=== PATIENT | female | born 1960 | race Caucasian/White ===

== ENCOUNTER 2017-01-04 11:36 | Emergency (ER) | payer SELFPAY ==
[~2017-01-04] VITALS: Ht 165.1 cm; Wt 74.8 kg
[~2017-01-04 11:36] MED LIST: ZOLP10TA3 PO
[2017-01-04 11:37] VITALS: BP 117/66; PULSE 88; RESP 20; TEMP 98.8; O2SAT 95
--- NOTE | 2017-01-04 12:01 | PD ---
Physical Exam Time Seen by Provider: 11:58 Narrative 56yo F sent by Dr. Rios for incontinence of bowel and bladder for 3 days. Denies low back. + weakness in bilat lower extremities "been going on for awhile and getting progressively worse.". Denies IV drug use, cancer. Denies current fever, vomiting. Patient ambulatory in triage. Patient seen in triage. Awaiting bed placement. VS reviewed. Data Data Last Documented VS Vital Signs Date Time Temp Pulse Resp B/P Pulse Ox O2 Delivery O2 Flow Rate FiO2 01/04/17 11:37 98.8 88 20 117/66 95 Room Air MDM Supervised Visit with RANDY: Lindsay Benitez Jan 04, 2017 12:01
[2017-01-04 12:21] VITALS: BP 121/71; PULSE 83; RESP 20; TEMP 98.1; O2SAT 94
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
[2017-01-04 13:16] LABS: AUTOMATED NEUTROPHIL # 12.5 TH/MM3 (1.8-7.7); BASOPHIL # 0.1 TH/MM3 (0-0.2); BASOPHIL % 0.7 % (0.0-2.0); EOSINOPHIL % 0.1 % (0.0-4.0); HEMATOCRIT 36.3 % (35.0-46.0); HEMO FLAGS DIFF FINAL; LYMPH % 11.6 % (9.0-44.0); LYMPHOCYTE # 1.7 TH/MM3 (1.0-4.8); MEAN CELL VOLUME 111.7 FL (80.0-100.0); MEAN CORPUSCULAR HGB CONC 33.2 % (32.0-36.0); MONO % 3.9 % (0.0-8.0); NEUT % 83.7 % (16.0-70.0); PLATELET COUNT 314 TH/MM3 (150-450); RED BLOOD COUNT 3.25 MIL/MM3 (4.00-5.30); RED CELL DISTRIBUTION WIDTH 16.9 % (11.6-17.2)
[2017-01-04 13:27] LABS: APTT (PATIENT) 29.7 SEC (24.3-30.1); INTERNATIONAL NORMALIZED RATIO 1.1 RATIO; PROTHROMBIN TIME - PATIENT 12.4 SEC (9.8-11.6)
[2017-01-04 13:38] LABS: BICARBONATE 30.8 MEQ/L (21.0-32.0); POTASSIUM 3.4 MEQ/L (3.5-5.1)
[2017-01-04] MEDS ORDERED: IBUP200T2 PO (13:59)
[2017-01-04] MEDS ORDERED: DIAZEPAM 10 MG TAB PO ONE (14:00)
[2017-01-04] MEDS ORDERED: LORazepam 2 MG/ML VIAL IV PUSH ONE (15:30)
[2017-01-04 16:06] VITALS: BP 126/67; PULSE 85; RESP 21; O2SAT 94
--- NOTE | 2017-01-04 16:16 | RADRPT ---
EXAM DATE/TIME: 01/04/2017 00:00 [facility] COMPARISON: No previous studies available for comparison. INDICATIONS : Mass. Vertigo. Falling. CONTRAST: 15 cc Omniscan (gadodiamide) IV MEDICAL HISTORY : None. SURGICAL HISTORY : section. Right hand/ wrist. ENCOUNTER: Subsequent ACUITY: 4-6 months PAIN SCORE: 0/10 LOCATION: Brain TECHNIQUE: Multiplanar, multisequence MRI of the brain was performed both prior to and following the administration of paramagnetic contrast. FINDINGS: By MRI there is mild central and cortical atrophy. There is no restricted diffusion shabnam dent. There are no extraaxial fluid collections appreciated. Midline structures are intact. Following intravenous administration of gadolinium there is no abnormal contrast enhancement apprecia nathanael. Seventh and eighth nerves are well visualized and are unremarkable. Mastoids are clear. Sinuses appe ar normal. CONCLUSION: Marked central and cortical atrophy more so in the cerebellum than in the supratentor ial brain. Juan Sanchez MD FACR on January 04, 2017 at 15:57 Board Certified Radiologist. This report was verified electronically.
--- NOTE | 2017-01-04 16:23 | RADRPT ---
EXAM DATE/TIME: 01/04/2017 14:36 [facility] COMPARISON: No previous studies available for comparison. INDICATIONS : Mass. CONTRAST: 15 cc Omniscan (gadodiamide) IV MEDICAL HISTORY : None. SURGICAL HISTORY : section. Right hand/wrist sx. ENCOUNTER: Subsequent ACUITY: 4-6 months PAIN SCORE: 1/10 LOCATION: Bilateral neck region. TECHNIQUE: Multiplanar, multisequence MRI examination of the cervical spine was performed. FINDINGS: VERTEBRAE: Normal vertebral body height. Bone marrow signals within normal limits. ALIGNMENT: There is no anterolisthesis or retrolisthesis. CORD: Normal configuration and signal. POST FOSSA: The cerebellar tonsils are normal in position. POST-CONTRAST: No abnormal areas of enhancement are seen. The craniocervical junction and C1-C2 level demonstrate no abnormality. C2-C3: No disc herniation, canal stenosis, or neural foraminal stenosis is present. There is facet arthrosis bilaterally. C3-C4: No disc herniation or canal stenosis is present. There is left uncovertebral osteophyte and there is facet arthrosis bilaterally, left greater than right. There is moderate left neural foraminal stenosi s. C4-C5: There is bilateral facet arthrosis. No disc herniation, canal stenosis, or neural foraminal stenosis is present. C5-C6: There is decreased disc height with endplate osteophytes anteriorly. Left uncovertebral osteophytes a re present causing severe left neuroforaminal stenosis. There is no canal stenosis or right neural fo raminal narrowing. C6-C7: There is decreased disc height with diffuse posterior disc osteophyte complex. Bilateral uncovertebra l osteophytes are present. There is mild narrowing of the spinal canal and mild bilateral neural fora brenda stenosis. C7-T1: There is bilateral facet arthrosis, left greater than right. No disc herniation, canal stenosis or ne ural foraminal narrowing is identified. There is something causing susceptibility artifact posterior to the spinous process at the C7 level. CONCLUSION: 1. No mass is visualized. 2. There are degenerative changes throughout the cervical spine, as detailed above. There is severe l eft neural foraminal narrowing at C5-C6 secondary to uncovertebral osteophyte. Please see above for d etailed description of each level. Hira Wiley MD on January 04, 2017 at 16:17 Board Certified Radiologist. This report was verified electronically.
--- NOTE | 2017-01-04 16:28 | RADRPT ---
EXAM DATE/TIME: 01/04/2017 14:36 [facility] COMPARISON: No previous studies available for comparison. INDICATIONS : Mass. CONTRAST: 15 cc Omniscan (gadodiamide) IV MEDICAL HISTORY : None. SURGICAL HISTORY : section. Right hand/wrist sx. ENCOUNTER: Subsequent ACUITY: 4-6 months PAIN SCORE: 1/10 LOCATION: Bilateral lower back. TECHNIQUE: Multiplanar multisequence MRI of the lumbar spine was performed with and without contrast. FINDINGS: The most caudal appearing lumbar vertebra is numbered as L5. VERTEBRAE: Bone marrow signal is within normal limits and vertebral body height is maintained. There is no anter olisthesis or retrolisthesis. CONUS: Normal level and configuration. POST CONTRAST: No abnormal areas of contrast enhancement are seen. T12-L1: There is decreased disc height with a diffuse disc bulge. No definite canal stenosis or neural forami nal narrowing is seen. There is motion artifact on the axial series. L1-L2: There is mild decreased disc height with a diffuse disc bulge. Mild facet hypertrophy is present. The re is no canal stenosis or significant neuroforaminal narrowing. L2-L3: There is decreased disc height with a diffuse disc bulge and moderate facet hypertrophy. Lateral rece sses are effaced. There is no spinal canal stenosis or neural foraminal narrowing. L3-L4: There is a minimal diffuse disc bulge with mild facet hypertrophy. No spinal canal stenosis or neural foraminal narrowing is visualized. L4-L5: There is severe right and moderate left facet hypertrophy with fluid in the right facet joint. No dis c herniation, canal stenosis, or neural foraminal narrowing is identified. L5-S1: There is moderate bilateral facet hypertrophy with small right synovial cyst posteriorly. No disc her niation, canal stenosis, or neuroforaminal stenosis is visualized. Visualized paraspinous structures demonstrate edema involving the rectum with increased enhancement p articularly of the mucosa. CONCLUSION: 1. Multilevel degenerative disc disease of the lumbar spine, as above. No significant spinal canal st enosis is identified. Please see above for detailed description of each level. 2. Abnormal edema and enhancement of the rectum. This could represent an inflammatory process. Sugges t correlation with the clinical history and consider further evaluation if this is an unexpected find ing. Hira Wiley MD on January 04, 2017 at 16:21 Board Certified Radiologist. This report was verified electronically.
[2017-01-04] MEDS ORDERED: GADODIAMIDE PF 287 MG/ML 5 ML VIAL (for RAD MRI) IV ONE (16:36)
--- NOTE | 2017-01-04 16:39 | RADRPT ---
EXAM DATE/TIME: 01/04/2017 14:36 [facility] COMPARISON: No previous studies available for comparison. INDICATIONS : Mass. Falling. Vertigo. CONTRAST: 15 cc Omniscan (gadodiamide) IV MEDICAL HISTORY : None. SURGICAL HISTORY : section. Right hand/wrist sx. ENCOUNTER: Subsequent ACUITY: 4-6 months PAIN SCORE: 1/10 LOCATION: Bilateral mid back region. TECHNIQUE: Multiplanar multisequence MRI of the thoracic spine was performed. FINDINGS: VERTEBRA: Normal vertebral body height. Homogeneous marrow signal. ALIGNMENT: Normal. CORD: Normal position and configuration. POST CONTRAST: No abnormal areas of contrast enhancement seen. T1-T2: Normal. T2-T3: The thecal sac has a normal diameter. No evidence of disc bulge or protrusion. T3-T4: Mildly displaced rib is present without impingement. T4-T5: The thecal sac has a normal diameter. No evidence of disc bulge or protrusion. T5-T6: Very mild distention is present without impingement T6-T7: Mild displacement is present without impingement T7-T8: The thecal sac has a normal diameter. No evidence of disc bulge or protrusion. T8-T9: The thecal sac has a normal diameter. No evidence of disc bulge or protrusion. T9-T10: The thecal sac has a normal diameter. No evidence of disc bulge or protrusion. T10-T11: Quinten patient is present causing some flattening of the intrathecal space. T11-T12: Mildis present without significant impingement T12-L1: There some flattening of the intrathecal space without significant impingement. There is no prevertebral mass. I do not see of patient's instability and vertigo. CONCLUSION: Mild degenerative changes. There is no evidence for impingement or mass. Juan Sanchez MD FACR on January 04, 2017 at 16:32 Board Certified Radiologist. This report was verified electronically.
--- NOTE | 2017-01-05 17:07 | EKG ---
Date Performed: 01/04/2017 Time Performed: 12:25:45 PTAGE: 56 years EKG: Sinus rhythm NORMAL ECG PREVIOUS TRACING : 06/07/2014 15.14 Compared to prior tracing no significant change DOCTOR: Jose R Childs Interpretating Date/Time 01/05/2017 17:07:29
== END 2017-01-04 18:40 | disposition home or self-care (01) ==
LOC: NEPC 11:36
DX: R15.9 Full incontinence of feces (principal); R53.1 Weakness; F41.9 Anxiety disorder, unspecified; F32.9 Major depressive disorder, single episode, unspecified
CPT/HCPCS: 70553; 72156; 72157; 72158; 80048; 82550; 85025; 85610; 85730; 93005; 99285; A9579

== ENCOUNTER 2017-03-02 10:00 | Inpatient (IN) | payer SELFPAY ==
[~2017-03-02] VITALS: Ht 167.6 cm; Wt 75.0 kg
[~2017-03-02 10:00] MED LIST changes: +IBUP200T2 PO; -ZOLP10TA3 PO
[2017-03-02 10:01] VITALS: BP 135/77; PULSE 93; RESP 20; TEMP 99.5; O2SAT 98
[2017-03-02 10:45] LABS: AUTOMATED NEUTROPHIL # 10.4 TH/MM3 (1.8-7.7); BASOPHIL # 0.1 TH/MM3 (0-0.2); BASOPHIL % 0.7 % (0.0-2.0); EOSINOPHIL % 0.4 % (0.0-4.0); HEMATOCRIT 33.1 % (35.0-46.0); HEMO FLAGS DIFF FINAL; LYMPH % 13.3 % (9.0-44.0); LYMPHOCYTE # 1.7 TH/MM3 (1.0-4.8); MEAN CELL VOLUME 121.8 FL (80.0-100.0); MEAN CORPUSCULAR HEMOGLOBIN 38.8 PG (27.0-34.0); MEAN CORPUSCULAR HGB CONC 31.9 % (32.0-36.0); MONO % 4.7 % (0.0-8.0); NEUT % 80.9 % (16.0-70.0); PLATELET COUNT 222 TH/MM3 (150-450); RED BLOOD COUNT 2.72 MIL/MM3 (4.00-5.30); RED CELL DISTRIBUTION WIDTH 17.7 % (11.6-17.2); WHITE BLOOD COUNT 12.8 TH/MM3 (4.0-11.0)
[2017-03-02 11:02] LABS: ANION GAP 10 MEQ/L (5-15); AST (GOT) 184 U/L (15-37); BICARBONATE 24.4 MEQ/L (21.0-32.0); BLOOD UREA NITROGEN 4 MG/DL (7-18); CHLORIDE 104 MEQ/L (98-107); GLOMERULAR FILTRATION RATE 112 ML/MIN (>89); POTASSIUM 3.6 MEQ/L (3.5-5.1); SODIUM (NA) 138 MEQ/L (136-145)
[2017-03-02 11:03] LABS: ALT (GPT) 20 U/L (10-53)
[2017-03-02 11:05] LABS: ALKALINE PHOSPHATASE 352 U/L (45-117); TOTAL BILIRUBIN ADULT 4.2 MG/DL (0.2-1.0)
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
[2017-03-02] MEDS ORDERED: IOHEXOL 350 MG/ML 10 ML VIAL (for RAD DIAG) IVCONTRAST ONE (13:24)
--- NOTE | 2017-03-02 13:45 | RADRPT ---
EXAM DATE/TIME: 03/02/2017 13:01 [place] COMPARISON: No previous studies available for comparison. INDICATIONS : Left upper quadrant pain with elevated liver enzymes. IV CONTRAST: 92 cc Omnipaque 350 (iohexol) IV ORAL CONTRAST: No oral contrast ingested. RADIATION DOSE: 9.96 CTDIvol (mGy) MEDICAL HISTORY : None SURGICAL HISTORY : None. ENCOUNTER: Initial ACUITY: 1 day PAIN SCALE: 5/10 LOCATION: Left upper quadrant TECHNIQUE: Volumetric scanning of the abdomen and pelvis was performed. Using automated exposure control and ad justment of the mA and/or kV according to patient size, radiation dose was kept as low as reasonably achievable to obtain optimal diagnostic quality images. DICOM format image data is available electro nically for review and comparison. FINDINGS: LOWER LUNGS: Linear parenchymal opacity in the left lung base consistent with atelectasis/scarring. The visualized portions of the heart and thoracic aorta are grossly unremarkable. LIVER: Enlarged liver. Prominent diffuse somewhat heterogeneously decreased attenuation of the liver without intrahepatic ductal dilatation. There is a 1.5 cm cyst in segment 5 of the liver. Mild gallbladder w all thickening likely related to the liver disease. Trace ascites with fluid extending along the para colic gutters. Minimally recanalized periumbilical vein. SPLEEN: Spleen is borderline enlarged. There is an ill-defined hypodense mass measuring 1.8 x 1.9 cm in the s pleen. PANCREAS: Within normal limits. KIDNEYS: Normal in size and shape. There is no mass, stone or hydronephrosis. ADRENAL GLANDS: Within normal limits. VASCULAR: There is no aortic aneurysm. BOWEL/MESENTERY: Bowel appears grossly unremarkable without evidence for obstruction. The appendix is visualized and n ormal in appearance. ABDOMINAL WALL: Within normal limits. RETROPERITONEUM: There is no lymphadenopathy. BLADDER: No wall thickening or mass. REPRODUCTIVE: Within normal limits. INGUINAL: There is no lymphadenopathy or hernia. MUSCULOSKELETAL: Old left-sided rib fractures in the visualized inferior thorax. Degenerative spondylosis of the lower lumbar spine. No abnormal focal lytic or blastic bony lesions. CONCLUSION: 1. Hepatomegaly with profound decreased hepatic attenuation consistent with advanced hepatic steatosi s or early acute hepatitis. 2. Small amount of ascites and minimally recanalized periumbilical vein suggests some degree of jesus l hypertension. 3. Nonspecific 1.8 x 1.9 cm splenic mass. Consider followup MRI examination in 6-12 months if patient has no history of malignancy. Otherwise, consider further characterization with MRI or PET scan if p atient has a history of malignancy. Kirk Botello MD on March 02, 2017 at 13:27 Board Certified Radiologist. This report was verified electronically.
[2017-03-02] MEDS ORDERED: MORPHINE SULFATE 4 MG/ML INJ IV PUSH ONE (14:30)
[2017-03-02 14:36] LABS: BACTERIA, URINE OCC /hpf; BLOOD, URINE TRACE (NEG); CALCIUM OXALATE CRYSTALS,URINE FEW /hpf; COMMENT (UR) CULTURE INDICATED; CULTURE IF INDICATED CULTURE INDICATED; GLUCOSE,URINE NEG (NEG); KETONE, URINE NEG (NEG); NITRITE,URINE NEG (NEG); PH, URINE 5.5 (5.0-8.5); SQUAMOUS EPITHELIAL CELL URINE 7 /hpf (0-5); TRANSITIONAL EPI CELLS, URINE 1 /hpf; URINE COLOR YELLOW (YELLW/STRAW)
[2017-03-02] MEDS ORDERED: SODIUM CHLORIDE 0.9% FLUSH 10 ML FLUSH IV FLUSH PRN (15:00)
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
[2017-03-02] MEDS ORDERED: LORazepam 2 MG/ML VIAL IV PUSH PRN ×4 (15:30→18:00)
[2017-03-02] MEDS ORDERED: FLUMAZENIL 0.5 MG/5 ML VIAL IV PUSH PRN (15:30)
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
[2017-03-02] MEDS ORDERED: cloNIDine HCL 0.1 MG TAB PO PRN (18:00)
[2017-03-02] MEDS ORDERED: ACETAMINOPHEN 325 MG TAB PO PRN (18:00)
[2017-03-02] MEDS ORDERED: RESP: ALBUTEROL 2.5 MG/IPRATROPIUM 0.5 MG NEB (PRN) NEB (18:00)
[2017-03-02 18:15] VITALS: BP 167/79; PULSE 103; RESP 20; TEMP 98.5; O2SAT 96
[2017-03-02 20:40] VITALS: BP 126/70; PULSE 96; RESP 16; TEMP 98.4; O2SAT 94
[2017-03-02] MEDS: cefTRIAXone INJ 1,000 MG in SODIUM CHLORIDE 0.9% INJ 100 ML IV SCH (20:42)
[2017-03-02] MEDS: SODIUM CHLORIDE 0.9% FLUSH 10 ML FLUSH IV FLUSH SCH (20:45)
[2017-03-02] MEDS ORDERED: KETOROLAC TROMETHAMINE 30 MG/ML (IVP) VIAL IV PUSH ONE (21:15)
[2017-03-02 23:17] VITALS: BP 117/62; PULSE 87; RESP 16; TEMP 97.9; O2SAT 93
[2017-03-03] VITALS (7 sets, daily range): BP systolic 102–127; BP diastolic 52–67; PULSE 84–94; RESP 16–20; TEMP 97.9–98.8; O2SAT 93–96
[2017-03-03] MEDS: LORazepam 1 MG TAB PO PRN (06:58)
[2017-03-03 08:32] LABS: AUTOMATED NEUTROPHIL # 8.4 TH/MM3 (1.8-7.7); BASOPHIL % 0.3 % (0.0-2.0); EOSINOPHIL # 0.1 TH/MM3 (0-0.4); EOSINOPHIL % 0.7 % (0.0-4.0); HEMATOCRIT 31.5 % (35.0-46.0); HEMO FLAGS DIFF FINAL; LYMPH % 16.8 % (9.0-44.0); LYMPHOCYTE # 1.8 TH/MM3 (1.0-4.8); MEAN CELL VOLUME 121.5 FL (80.0-100.0); MEAN CORPUSCULAR HEMOGLOBIN 39.5 PG (27.0-34.0); MEAN CORPUSCULAR HGB CONC 32.5 % (32.0-36.0); MONO % 4.6 % (0.0-8.0); NEUT % 77.6 % (16.0-70.0); PLATELET COUNT 192 TH/MM3 (150-450); RED BLOOD COUNT 2.59 MIL/MM3 (4.00-5.30); RED CELL DISTRIBUTION WIDTH 17.2 % (11.6-17.2); WHITE BLOOD COUNT 10.8 TH/MM3 (4.0-11.0)
[2017-03-03 08:42] LABS: INTERNATIONAL NORMALIZED RATIO 1.3 RATIO; PROTHROMBIN TIME - PATIENT 14.5 SEC (9.8-11.6)
[2017-03-03 08:59] LABS: ANION GAP 11 MEQ/L (5-15); AST (GOT) 157 U/L (15-37); BICARBONATE 23.4 MEQ/L (21.0-32.0); BLOOD UREA NITROGEN 4 MG/DL (7-18); CHLORIDE 107 MEQ/L (98-107); GLOMERULAR FILTRATION RATE 160 ML/MIN (>89); POTASSIUM 3.6 MEQ/L (3.5-5.1); SODIUM (NA) 141 MEQ/L (136-145)
[2017-03-03 09:02] LABS: ALKALINE PHOSPHATASE 294 U/L (45-117); ALT (GPT) 17 U/L (10-53); FERRITIN 194 NG/ML (8-252); TOTAL BILIRUBIN ADULT 4.1 MG/DL (0.2-1.0); TRANSFERRIN IRON PROFILE 158 MG/DL (200-360)
[2017-03-03] MEDS: THIAMINE HCL 100 MG TAB PO SCH (09:34)
[2017-03-03] MEDS: PANTOPRAZOLE SOD 40 MG DELAYED RELEASE TAB PO SCH (09:34)
[2017-03-03] MEDS: SODIUM CHLORIDE 0.9% FLUSH 10 ML FLUSH IV FLUSH SCH ×2 (09:35→21:43)
--- NOTE | 2017-03-03 10:09 | HHI.PR ---
Subjective Remarks Follow-up hyperbilirubinemia/abdominal pain 03/03/17-patient seen and examined, reports improvement in abdominal symptoms since admission. Denies any nausea or vomiting with by mouth intake. Objective Vitals Vital Signs Date Time Temp Pulse Resp B/P (MAP) Pulse Ox O2 Delivery O2 Flow Rate FiO2 03/03/17 08:00 98.1 91 20 119/59 (79) 96 03/03/17 04:20 97.9 84 16 102/62 (75) 94 03/02/17 23:17 97.9 87 16 117/62 (80) 93 03/02/17 20:40 98.4 96 16 126/70 (88) 94 03/02/17 18:20 03/02/17 18:15 98.5 103 20 167/79 (108) 96 I/O 03/02/17 03/02/17 03/02/17 03/03/17 03/03/17 03/03/17 07:00 15:00 23:00 07:00 15:00 23:00 Intake Total 100 ml 720 ml Output Total 500 ml Balance 100 ml 220 ml Intake Oral 720 ml IV Total 100 ml Output Urine Total 500 ml # Bowel Movements 0 Result Diagram: 03/03/17 0614 03/03/17 0619 Imaging Last Impressions Abdomen/Pelvis CT 03/02/17 0000 Signed Impressions: Service Date/Time: Thursday, March 02, 2017 13:01 - CONCLUSION: 1. Hepatomegaly with profound decreased hepatic attenuation consistent with advanced hepatic steatosis or early acute hepatitis. 2. Small amount of ascites and minimally recanalized periumbilical vein suggests some degree of portal hypertension. 3. Nonspecific 1.8 x 1.9 cm splenic mass. Consider followup MRI examination in 6-12 months if patient has no history of malignancy. Otherwise, consider further characterization with MRI or PET scan if patient has a history of malignancy. Kirk Botello MD Objective Remarks GENERAL: NAD SKIN: Warm and dry. HEAD: Normocephalic. EYES: No scleral icterus. No injection or drainage. NECK: Supple, trachea midline. No JVD or lymphadenopathy. CARDIOVASCULAR: Regular rate and rhythm without murmurs, gallops, or rubs. RESPIRATORY: Breath sounds equal bilaterally. No accessory muscle use. GASTROINTESTINAL: Abdomen soft, non-tender, distended. +HSM MUSCULOSKELETAL: No cyanosis, or edema. BACK: Nontender without obvious deformity. No CVA tenderness. A/P Problem List: (1) Alcohol abuse ICD Code: F10.10 - Alcohol abuse, uncomplicated (2) Hyperbilirubinemia ICD Code: E80.6 - Other disorders of bilirubin metabolism (3) Elevated liver enzymes ICD Code: R74.8 - Abnormal levels of other serum enzymes Status: Acute (4) Coagulopathy ICD Code: D68.9 - Coagulation defect, unspecified Assessment and Plan 57-year-old female Hyperbilirubinemia CT abdomen/pelvics report from outside noted and review by me Appreciate input from gastroenterology Markers pending and continue to monitor bilirubin Transaminitis Likely secondary to alcohol abuse Hepatitis profile pending CT abdomen/pelvics noted and review, Check LIVER US Anti-smooth muscle antibody, mitochondrial and JAMES pending Coagulopathy Secondary to liver disease Consider treatment with FFP and vitamin K Urinary tract infections Continue Rocephin IV daily and monitor urine culture Alcohol abuse Counselled to quit CARLO Chavira protocol, Librium DVT prophylaxis: Bilateral SCDs Brad hTornton MD Mar 03, 2017 10:09
[2017-03-03 13:13] LABS: ANA SCREEN NEG (NEG)
[2017-03-03] MEDS: LORazepam 2 MG TAB PO PRN (15:51)
--- NOTE | 2017-03-03 16:51 | HHI.GIFU ---
Subjective Remarks Ambulating in room. States she is hungry because she has not been able to eat because she is scheduled for an US at 4pm. C/O anxiety. (Lor Warren) Objective Vitals I&O Vital Signs Date Time Temp Pulse Resp B/P (MAP) Pulse Ox O2 Delivery O2 Flow Rate FiO2 03/03/17 14:33 96 03/03/17 12:00 98.8 88 20 125/67 (86) 96 03/03/17 08:00 98.1 91 20 119/59 (79) 96 03/03/17 04:20 97.9 84 16 102/62 (75) 94 03/02/17 23:17 97.9 87 16 117/62 (80) 93 03/02/17 20:40 98.4 96 16 126/70 (88) 94 03/02/17 18:20 03/02/17 18:15 98.5 103 20 167/79 (108) 96 I/O 03/02/17 03/02/17 03/02/17 03/03/17 03/03/17 03/03/17 06:59 14:59 22:59 06:59 14:59 22:59 Intake Total 100 ml 720 ml Output Total 500 ml Balance 100 ml 220 ml Intake Oral 720 ml IV Total 100 ml Output Urine Total 500 ml # Bowel Movements 0 Laboratory Laboratory Tests Test 03/03/17 06:14 03/03/17 06:19 White Blood Count 10.8 Red Blood Count 2.59 Hemoglobin 10.2 Hematocrit 31.5 Mean Corpuscular Volume 121.5 Mean Corpuscular Hemoglobin 39.5 Mean Corpuscular Hemoglobin Concent 32.5 Red Cell Distribution Width 17.2 Platelet Count 192 Mean Platelet Volume 9.3 Neutrophils (%) (Auto) 77.6 Lymphocytes (%) (Auto) 16.8 Monocytes (%) (Auto) 4.6 Eosinophils (%) (Auto) 0.7 Basophils (%) (Auto) 0.3 Neutrophils # (Auto) 8.4 Lymphocytes # (Auto) 1.8 Monocytes # (Auto) 0.5 Eosinophils # (Auto) 0.1 Basophils # (Auto) 0.0 CBC Comment DIFF FINAL Differential Comment Prothrombin Time 14.5 Prothromb Time International Ratio 1.3 Activated Partial Thromboplast Time 35.0 Blood Urea Nitrogen 4 Creatinine 0.41 Random Glucose 70 Total Protein 5.9 Albumin 2.0 Calcium Level 7.8 Alkaline Phosphatase 294 Aspartate Amino Transf (AST/SGOT) 157 Alanine Aminotransferase (ALT/SGPT) 17 Total Bilirubin 4.1 Sodium Level 141 Potassium Level 3.6 Chloride Level 107 Carbon Dioxide Level 23.4 Anion Gap 11 Estimat Glomerular Filtration Rate 160 Iron Level 74 Total Iron Binding Capacity 221 Percent Iron Saturation 33.5 Ferritin 194 Tumor Marker Alpha Fetoprotein 2.8 Anti-Nuclear Antibody Screen NEG Hepatitis A IgM Antibody NEGATIVE Hepatitis B Surface Antigen NEGATIVE Hepatitis B Core IgM Antibody NEGATIVE Hepatitis C Antibody NEGATIVE Date/Time Source Procedure Growth Status 03/02/17 14:00 Urine Clean Catch Urine Culture - Preliminary NO GROWTH IN 24 HOURS. Resulted Imaging Last Impressions Abdomen/Pelvis CT 03/02/17 0000 Signed Impressions: Service Date/Time: Thursday, March 02, 2017 13:01 - CONCLUSION: 1. Hepatomegaly with profound decreased hepatic attenuation consistent with advanced hepatic steatosis or early acute hepatitis. 2. Small amount of ascites and minimally recanalized periumbilical vein suggests some degree of portal hypertension. 3. Nonspecific 1.8 x 1.9 cm splenic mass. Consider followup MRI examination in 6-12 months if patient has no history of malignancy. Otherwise, consider further characterization with MRI or PET scan if patient has a history of malignancy. Kirk Botello MD Physical Exam HEENT: Normocephalic; atraumatic; no jaundice. Throat is clear. NECK: Neck is supple, no JVD, no lymphadenopathy. CHEST: CTA CARDIAC: RRR ABDOMEN: Soft, nondistended, mild diffuse tenderness; no hepatosplenomegaly; bowel sounds are present in all four quadrants. EXTREMITIES: No clubbing, cyanosis, or edema. SKIN: Normal; no rash; no jaundice. 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 (Lor Warren) Assessment and Plan Plan ASSESSMENT - Elevated LFTs. (+) ETOH use. CT abdomen/pelvis (03/02/17)---> hepatomegaly with profound decreased hepatic attenuation consistent with advanced hepatic steatosis or early acute hepatitis. Small amount of ascites and minimally recanalized periumbilical vein suggests some degree of portal hypertension, nonspecific 1.8 x 1.9 splenic mass. Consider followup MRI examination in 6- 12 months if patient has no history of malignancy. Otherwise, consider further characterization with MRI or PET scan if patient has a history of malignancy. US pending. Hepatitis profile negative. JAMES negative. AMA pending. ASMA pending. Alpha 1 Antitrypsin pending. Ceruloplasmin pending. AFP 2.8. Ferritin 194. Iron saturation 33.5%. T. Bili 4.1, AST 157, ALT 17, Alk Phosph 294. (+) Daily ETOH use. Likely alcoholic hepatitis on underlying liver disease. US to r/o any underlying gb dz. DF 15.60. MELD 6. - Abdominal pain, bloating. CT as above. US to evaluate gb. - Anemia. Stable, no active bleeding. - Macrocytosis. Pt with significant ETOH abuse. Will check folate/b12 level. - Coagulopathy. PT 14.5, INR 1.3 - Splenic mass, nonspecific. Radiologist recommends MRI in 6-12 months. - ETOH abuse. DT precautions per attending. PLAN - NPO for US. - Await US - Folate and B12 level - Await liver workup - DT precautions - Needs complete ETOH cessation - MRI abdomen in 6-12 months for fu nonspecific splenic mass - Further recommendations to follow based on results of above - This pt seen by myself and Dr Redd and this note is written on his behalf (Lor Warren) Physician Comments Seen and examined, plan as above. will follow up with you pending results. (Abigail Redd MD) Lor Warren Mar 03, 2017 16:51 Abigail Redd MD Mar 03, 2017 22:19
--- NOTE | 2017-03-03 17:28 | RADRPT ---
EXAM DATE/TIME: 03/03/2017 16:08 [facility] COMPARISON: No previous studies available for comparison. INDICATIONS : Elevated lab values. MEDICAL HISTORY : . Head trauma. C1 fracture. C6-7 Osteophyte. Nausea. Vomiting. Jaundice. Depression . Anxiety. Alcohol use. Tobacco use. Facial fractures. Fibromyalgia. SURGICAL HISTORY : section. Right radial fracture repair. ENCOUNTER: Initial ACUITY: 1 day PAIN SCORE: 2/10 LOCATION: Bilateral upper quadrant MEASUREMENTS: LIVER: 23.3 cm length COMMON DUCT: 8 mm RIGHT KIDNEY: 10.1 x 6.2 x 4.6 cm SPLEEN: 12.5 cm length FINDINGS: LIVER: Increased echotexture without ductal dilatation. In the right lobe anteriorly a 2.0 x 1.6 x 1.1 cm s imple cyst is noted. There is perihepatic free fluid identified, and hepatomegaly. COMMON DUCT: No intraluminal mass or stone visualized. GALLBLADDER: Contains no stones, demonstrates no wall thickening or pericholecystic fluid. There is sludge in the gallbladder and pericholecystic fluid. There is mild wall thickening up to 5.8 mm. 7.3 mm polyp. PANCREAS: The visualized portions are within normal limits. RIGHT KIDNEY: No hydronephrosis, stone or mass. SPLEEN: Probable 2.2 x 1.5 x 1.9 cm echogenic hemangioma in the spleen. CONCLUSION: 1. Hepatic steatosis, hepatomegaly and slightly nodular hepatic contour consistent with cirrhosis. 2. Right liver cyst. 3. 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 4. The main portal vein demonstrates hepatofugal flow within the visualized portions, however the mor e central main portal vein is not well-visualized and flow cannot be confirmed. It is patent on yeste rday's CT study. 5. Gallbladder polyp. 6. Mildly prominent common bile duct up to 7.7 mm. Kenny Silva MD on March 03, 2017 at 17:23 Board Certified Radiologist. This report was verified electronically.
[2017-03-03] MEDS: cefTRIAXone INJ 1,000 MG in SODIUM CHLORIDE 0.9% INJ 100 ML IV SCH (21:44)
[2017-03-03] MEDS ORDERED: ONDANSETRON HCL 4 MG/2 ML VIAL IV PUSH PRN (22:15)
[2017-03-04 04:42] VITALS: BP 112/58; PULSE 82; RESP 16; TEMP 98.4; O2SAT 95
[2017-03-04] MEDS: METOCLOPRAMIDE HCL 10 MG/2 ML VIAL IV PUSH PRN ×2 (05:20→14:20)
[2017-03-04 08:00] VITALS: BP 114/56; PULSE 81; RESP 16; TEMP 98.4; O2SAT 96
[2017-03-04 08:36] LABS: INTERNATIONAL NORMALIZED RATIO 1.4 RATIO; PROTHROMBIN TIME - PATIENT 15.9 SEC (9.8-11.6)
[2017-03-04 08:39] LABS: ALT (GPT) 17 U/L (10-53); ANION GAP 10 MEQ/L (5-15); AST (GOT) 138 U/L (15-37); BICARBONATE 23.8 MEQ/L (21.0-32.0); BLOOD UREA NITROGEN 4 MG/DL (7-18); CHLORIDE 107 MEQ/L (98-107); GLOMERULAR FILTRATION RATE 131 ML/MIN (>89); POTASSIUM 3.3 MEQ/L (3.5-5.1); SODIUM (NA) 141 MEQ/L (136-145)
[2017-03-04 08:42] LABS: ALKALINE PHOSPHATASE 262 U/L (45-117); TOTAL BILIRUBIN ADULT 4.1 MG/DL (0.2-1.0)
[2017-03-04] MEDS: PANTOPRAZOLE SOD 40 MG DELAYED RELEASE TAB PO SCH (08:53)
[2017-03-04] MEDS: THIAMINE HCL 100 MG TAB PO SCH (08:53)
[2017-03-04] MEDS: SODIUM CHLORIDE 0.9% FLUSH 10 ML FLUSH IV FLUSH SCH ×2 (09:00→20:31)
[2017-03-04 12:00] VITALS: BP 98/53; PULSE 82; RESP 20; TEMP 98.4; O2SAT 90
--- NOTE | 2017-03-04 12:01 | HHI.PR ---
Subjective Remarks Follow-up hyperbilirubinemia/abdominal pain 03/03/17-patient seen and examined, reports improvement in abdominal symptoms since admission. Denies any nausea or vomiting with by mouth intake. 03/04/17-patient seen and examined home had episode of emesis last night however not this morning. She was able to tolerate by mouth. Denies any significant abdominal pain. Per /boyfriend jaundice is improving. Bilirubin still up 4.1 Objective Vitals Vital Signs Date Time Temp Pulse Resp B/P (MAP) Pulse Ox O2 Delivery O2 Flow Rate FiO2 03/04/17 08:00 98.4 81 16 114/56 (75) 96 03/04/17 04:42 98.4 82 16 112/58 (76) 95 03/03/17 23:47 98.3 87 16 117/58 (77) 95 03/03/17 19:49 98.8 88 18 104/52 (69) 96 03/03/17 16:00 98.4 94 20 127/65 (85) 93 03/03/17 14:33 96 03/03/17 12:00 98.8 88 20 125/67 (86) 96 I/O 03/03/17 03/03/17 03/03/17 03/04/17 03/04/17 03/04/17 06:59 14:59 22:59 06:59 14:59 22:59 Intake Total 720 ml 600 ml 1150 ml Output Total 500 ml 350 ml 1450 ml Balance 220 ml 250 ml -300 ml Intake Oral 720 ml 600 ml 1150 ml Output Urine Total 500 ml 350 ml 1450 ml # Bowel Movements 0 2 0 Result Diagram: 03/03/17 0614 03/04/17 0712 Imaging Last Impressions Liver Ultrasound 03/03/17 0000 Signed Impressions: Service Date/Time: Friday, March 03, 2017 16:08 - CONCLUSION: 1. Hepatic steatosis, hepatomegaly and slightly nodular hepatic contour consistent with cirrhosis. 2. Right liver cyst. 3. 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 4. The main portal vein demonstrates hepatofugal flow within the visualized portions, however the more central main portal vein is not well-visualized and flow cannot be confirmed. It is patent on yesterday's CT study. 5. Gallbladder polyp. 6. Mildly prominent common bile duct up to 7.7 mm. Kenny Silva MD Abdomen/Pelvis CT 03/02/17 0000 Signed Impressions: Service Date/Time: Thursday, March 02, 2017 13:01 - CONCLUSION: 1. Hepatomegaly with profound decreased hepatic attenuation consistent with advanced hepatic steatosis or early acute hepatitis. 2. Small amount of ascites and minimally recanalized periumbilical vein suggests some degree of portal hypertension. 3. Nonspecific 1.8 x 1.9 cm splenic mass. Consider followup MRI examination in 6-12 months if patient has no history of malignancy. Otherwise, consider further characterization with MRI or PET scan if patient has a history of malignancy. Kirk Botello MD Objective Remarks GENERAL: NAD SKIN: Warm and dry. HEAD: Normocephalic. EYES: No scleral icterus. No injection or drainage. NECK: Supple, trachea midline. No JVD or lymphadenopathy. CARDIOVASCULAR: Regular rate and rhythm without murmurs, gallops, or rubs. RESPIRATORY: Breath sounds equal bilaterally. No accessory muscle use. GASTROINTESTINAL: Abdomen soft, non-tender, distended. +HSM MUSCULOSKELETAL: No cyanosis, or edema. BACK: Nontender without obvious deformity. No CVA tenderness. A/P Problem List: (1) Alcohol abuse ICD Code: F10.10 - Alcohol abuse, uncomplicated (2) Hyperbilirubinemia ICD Code: E80.6 - Other disorders of bilirubin metabolism (3) Elevated liver enzymes ICD Code: R74.8 - Abnormal levels of other serum enzymes Status: Acute (4) Coagulopathy ICD Code: D68.9 - Coagulation defect, unspecified Assessment and Plan 57-year-old female Hyperbilirubinemia CT abdomen/pelvics report from outside noted and review Liver US noted and review Appreciate input from gastroenterology CEA negative and T Bili 4.1 today and continue to monitor bilirubin Transaminitis Likely secondary to alcohol abuse Hepatitis profile negative CT abdomen/pelvics noted and review, LIVER US noted Anti-smooth muscle antibody, mitochondrial pending Coagulopathy Secondary to liver disease Consider treatment with FFP and vitamin K Urinary tract infections Urine culture negative therefore will discontinue Rocephin IV daily Alcohol abuse Counselled to quit Rally pack, CIWA protocol, Librium DVT prophylaxis: Bilateral SCDs Brad Thornton MD Mar 04, 2017 12:01
[2017-03-04] MEDS: LORazepam 2 MG TAB PO PRN (15:30)
[2017-03-04 16:00] VITALS: BP 111/58; PULSE 85; RESP 16; TEMP 98.3; O2SAT 96
--- NOTE | 2017-03-04 16:42 | HHI.GIFU ---
Subjective Remarks Pt complaining of n/v today. (Em Valladares) Objective Vitals I&O Vital Signs Date Time Temp Pulse Resp B/P (MAP) Pulse Ox O2 Delivery O2 Flow Rate FiO2 03/04/17 12:00 98.4 82 20 98/53 (68) 90 03/04/17 08:00 98.4 81 16 114/56 (75) 96 03/04/17 04:42 98.4 82 16 112/58 (76) 95 03/03/17 23:47 98.3 87 16 117/58 (77) 95 03/03/17 19:49 98.8 88 18 104/52 (69) 96 I/O 03/03/17 03/03/17 03/03/17 03/04/17 03/04/17 03/04/17 07:00 15:00 23:00 07:00 15:00 23:00 Intake Total 720 ml 600 ml 1150 ml Output Total 500 ml 350 ml 1450 ml Balance 220 ml 250 ml -300 ml Intake Oral 720 ml 600 ml 1150 ml Output Urine Total 500 ml 350 ml 1450 ml # Bowel Movements 0 2 0 Laboratory Laboratory Tests Test 03/04/17 07:12 Prothrombin Time 15.9 Prothromb Time International Ratio 1.4 Blood Urea Nitrogen 4 Creatinine 0.49 Random Glucose 92 Total Protein 5.4 Albumin 1.9 Calcium Level 7.6 Alkaline Phosphatase 262 Aspartate Amino Transf (AST/SGOT) 138 Alanine Aminotransferase (ALT/SGPT) 17 Total Bilirubin 4.1 Direct Bilirubin 3.2 Sodium Level 141 Potassium Level 3.3 Chloride Level 107 Carbon Dioxide Level 23.8 Anion Gap 10 Estimat Glomerular Filtration Rate 131 Date/Time Source Procedure Growth Status 03/02/17 14:00 Urine Clean Catch Urine Culture - Final 50-100,000 CFU/ML MIXED LEVI... Complete Physical Exam HEENT: Normocephalic; atraumatic; no jaundice. CHEST: CTA CARDIAC: RRR ABDOMEN: Soft, mildly distended, mild diffuse tenderness, dull; no hepatosplenomegaly; bowel sounds are present in all four quadrants. EXTREMITIES: No clubbing, cyanosis, or edema. SKIN: Normal; no rash; no jaundice. 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 (Em Valladares) Assessment and Plan Plan ASSESSMENT - Elevated LFTs. (+) ETOH use. CT abdomen/pelvis (03/02/17)---> hepatomegaly with profound decreased hepatic attenuation consistent with advanced hepatic steatosis or early acute hepatitis. Small amount of ascites and minimally recanalized periumbilical vein suggests some degree of portal hypertension, nonspecific 1.8 x 1.9 splenic mass. Consider followup MRI examination in 6- 12 months if patient has no history of malignancy. Otherwise, consider further characterization with MRI or PET scan if patient has a history of malignancy. US shows hepatic steatosis and hepatomegaly, slightly nodular controu c/w dirrhosis, liver cyst, prob splenic hemangioma, main portal vein not well visualized, gall bladder polyp, mildly prmoinent CBD 7.7mm. will get MRCP Hepatitis profile negative. JAMES negative. AMA pending. ASMA neg. Alpha 1 Antitrypsin 202. Ceruloplasmin pending. AFP 2.8. Ferritin 194. Iron saturation 33.5%. (+) Daily ETOH use. Likely alcoholic hepatitis on underlying liver disease. US to r/o any underlying gb dz. DF 15.60. MELD 6. - Abdominal pain, bloating. CT as above. US to evaluate gb. - Anemia. Stable, no active bleeding. - Macrocytosis. Pt with significant ETOH abuse. Will check folate/b12 level. - Coagulopathy. PT 15.9, INR 1.4 - Splenic mass, nonspecific. Radiologist recommends MRI in 6-12 months. - ETOH abuse. DT precautions per attending. PLAN - MRCP - Await rest of liver workup - DT precautions - Needs complete ETOH cessation - MRI abdomen in 6-12 months for fu nonspecific splenic mass - Further recommendations to follow based on results of above - This pt seen by myself and Dr Redd and this note is written on his behalf (Em Valladares) Physician Comments Plan as above, work up for CLD and MRCP pending. Will follow up with you. (Abigail Redd MD) Em Valladares Mar 04, 2017 16:42 Abigail Redd MD Mar 05, 2017 06:35
[2017-03-04 20:00] VITALS: BP 100/50; PULSE 77; RESP 19; TEMP 98.6; O2SAT 94
[2017-03-05] VITALS (7 sets, daily range): BP systolic 104–122; BP diastolic 59–69; PULSE 80–99; RESP 16–19; TEMP 97.8–98.9; O2SAT 92–95
[2017-03-05] MEDS: PANTOPRAZOLE SOD 40 MG DELAYED RELEASE TAB PO SCH (08:08)
[2017-03-05] MEDS: SODIUM CHLORIDE 0.9% FLUSH 10 ML FLUSH IV FLUSH SCH ×2 (08:08→20:42)
[2017-03-05] MEDS: THIAMINE HCL 100 MG TAB PO SCH (08:09)
[2017-03-05] MEDS: LORazepam 1 MG TAB PO PRN (08:09)
[2017-03-05 09:03] LABS: TOTAL BILIRUBIN ADULT 4.4 MG/DL (0.2-1.0)
--- NOTE | 2017-03-05 11:20 | RADRPT ---
EXAM DATE/TIME: 03/05/2017 09:54 [facility] COMPARISON: US ABDOMEN - LIVER, March 03, 2017, 16:08. CT ABDOMEN & PELVIS W CONTRAST, March 02, 2017, 13:01. INDICATIONS : Obstruction. MEDICAL HISTORY : None. SURGICAL HISTORY : None. ENCOUNTER: Initial ACUITY: 1 day PAIN SCORE: 0/10 LOCATION: Abdomen TECHNIQUE: Multiplanar, multisequence magnetic resonance imaging of the abdomen was performed. High-resolution 3D dataset was utilized to reconstruct maximum-intensity projection (MIP) images. FINDINGS: INTRAHEPATIC BILE DUCTS: Within normal limits. No significant anatomical variant is present. EXTRAHEPATIC BILE DUCTS: The common hepatic duct and common bile duct are normal in size measuring approximately 5 mm. There i s a 6 mm length and blind-ending duct segment visualized arising from the common hepatic duct. This i s of uncertain etiology. No filling defects are present. GALLBLADDER: There is gallbladder wall edema. No stones are present. LIVER: Liver measures 22 cm in length and demonstrates signal loss on out of phase imaging. There is a 14 mm cyst in the right posterior liver. The liver demonstrates a mildly nodular contour and prior CT demo nstrated a small recanalized paraumbilical vein. No suspicious lesion is identified on this noncontra st examination. PANCREAS: The main pancreatic duct is normal in size. There is no significant anatomical variant. Signal inte nsity is within normal limits. No mass is visualized on this non-contrast exam. OTHER: The kidneys and adrenal glands demonstrate no acute finding. Spleen is enlarged measuring 14 cm in le ngth. There is a lobulated T2 hyperintense lesion in the medial aspect measuring 19 mm. There is a sm all volume of free fluid within the abdomen and pelvis. Trace right pleural fluid is present. CONCLUSION: 1. There are no findings to indicate bile duct obstruction. The common bile duct is normal in size an d no filling defect is present. 2. Hepatomegaly with steatosis and liver features suggestive of cirrhosis. 3. The splenomegaly and free fluid could be related to the liver disease. Additionally, there is gall bladder wall edema which is nonspecific but could also be related to liver disease. 4. There is a 19 mm lesion in the medial aspect of the spleen. Imaging features are nonspecific. As m entioned previously this could represent a hemangioma. Most incidentally detected spleen lesions are benign. If no older examinations are available suggest performing six-month followup to confirm chadwick rizo. Hira Wiley MD on March 05, 2017 at 11:09 Board Certified Radiologist. This report was verified electronically.
[2017-03-05] MEDS: LORazepam 2 MG TAB PO PRN (13:38)
--- NOTE | 2017-03-05 13:44 | HHI.PR ---
Subjective Remarks Follow-up hyperbilirubinemia/abdominal pain 03/03/17-patient seen and examined, reports improvement in abdominal symptoms since admission. Denies any nausea or vomiting with by mouth intake. 03/04/17-patient seen and examined home had episode of emesis last night however not this morning. She was able to tolerate by mouth. Denies any significant abdominal pain. Per /boyfriend jaundice is improving. Bilirubin still up 4.1 03/05/17-patient seen and examined, she had MRCP today . quite sleepy and lethargic after the procedure Objective Vitals Vital Signs Date Time Temp Pulse Resp B/P (MAP) Pulse Ox O2 Delivery O2 Flow Rate FiO2 03/05/17 08:47 95 03/05/17 08:03 98.7 82 16 122/68 (86) 93 03/05/17 04:00 Room Air 03/05/17 04:00 98.0 99 18 116/68 (84) 93 03/05/17 00:00 Room Air 03/05/17 00:00 98.8 83 16 104/59 (74) 94 03/04/17 20:00 98.6 77 19 100/50 (67) 94 03/04/17 20:00 Room Air 03/04/17 16:00 98.3 85 16 111/58 (75) 96 I/O 03/04/17 03/04/17 03/04/17 03/05/17 03/05/17 03/05/17 07:00 15:00 23:00 07:00 15:00 23:00 Intake Total 1150 ml 360 ml 640 ml Output Total 1450 ml 1100 ml 750 ml Balance -300 ml -740 ml -110 ml Intake Oral 1150 ml 360 ml 640 ml Output Urine Total 1450 ml 1100 ml 750 ml # Bowel Movements 0 1 1 Result Diagram: 03/03/17 0614 03/04/17 0712 Imaging Last Impressions Cholangiopancreatography MRI 03/05/17 0000 Signed Impressions: Service Date/Time: Sunday, March 05, 2017 09:54 - CONCLUSION: 1. There are no findings to indicate bile duct obstruction. The common bile duct is normal in size and no filling defect is present. 2. Hepatomegaly with steatosis and liver features suggestive of cirrhosis. 3. The splenomegaly and free fluid could be related to the liver disease. Additionally, there is gallbladder wall edema which is nonspecific but could also be related to liver disease. 4. There is a 19 mm lesion in the medial aspect of the spleen. Imaging features are nonspecific. As mentioned previously this could represent a hemangioma. Most incidentally detected spleen lesions are benign. If no older examinations are available suggest performing six-month followup to confirm stability. Hira Wiley MD Liver Ultrasound 03/03/17 0000 Signed Impressions: Service Date/Time: Friday, March 03, 2017 16:08 - CONCLUSION: 1. Hepatic steatosis, hepatomegaly and slightly nodular hepatic contour consistent with cirrhosis. 2. Right liver cyst. 3. 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 4. The main portal vein demonstrates hepatofugal flow within the visualized portions, however the more central main portal vein is not well-visualized and flow cannot be confirmed. It is patent on yesterday's CT study. 5. Gallbladder polyp. 6. Mildly prominent common bile duct up to 7.7 mm. Kenny Silva MD Abdomen/Pelvis CT 03/02/17 0000 Signed Impressions: Service Date/Time: Thursday, March 02, 2017 13:01 - CONCLUSION: 1. Hepatomegaly with profound decreased hepatic attenuation consistent with advanced hepatic steatosis or early acute hepatitis. 2. Small amount of ascites and minimally recanalized periumbilical vein suggests some degree of portal hypertension. 3. Nonspecific 1.8 x 1.9 cm splenic mass. Consider followup MRI examination in 6-12 months if patient has no history of malignancy. Otherwise, consider further characterization with MRI or PET scan if patient has a history of malignancy. Kirk Botello MD Objective Remarks GENERAL: NAD SKIN: Warm and dry. HEAD: Normocephalic. EYES: No scleral icterus. No injection or drainage. NECK: Supple, trachea midline. No JVD or lymphadenopathy. CARDIOVASCULAR: Regular rate and rhythm without murmurs, gallops, or rubs. RESPIRATORY: Breath sounds equal bilaterally. No accessory muscle use. GASTROINTESTINAL: Abdomen soft, non-tender, distended. +HSM MUSCULOSKELETAL: No cyanosis, or edema. BACK: Nontender without obvious deformity. No CVA tenderness. A/P Problem List: (1) Alcohol abuse ICD Code: F10.10 - Alcohol abuse, uncomplicated (2) Hyperbilirubinemia ICD Code: E80.6 - Other disorders of bilirubin metabolism (3) Elevated liver enzymes ICD Code: R74.8 - Abnormal levels of other serum enzymes Status: Acute (4) Coagulopathy ICD Code: D68.9 - Coagulation defect, unspecified Assessment and Plan 57-year-old female Hyperbilirubinemia CT abdomen/pelvics report from outside noted and review Liver US noted and review Appreciate input from gastroenterology CEA negative and T Bili 4.4 today MRCP 03/05/17 with no finding of common bile duct obstruction Transaminitis Likely secondary to alcohol abuse Hepatitis profile negative CT abdomen/pelvics noted and review, LIVER US noted Anti-smooth muscle antibody, mitochondrial pending Coagulopathy Secondary to liver disease Urinary tract infections s/p Rocephin IV daily Alcohol abuse Counselled to quit CARLO Chavira protocol, Librium DVT prophylaxis: Bilateral SCDs Brad Thornton MD Mar 05, 2017 13:44
[2017-03-05] MEDS: METOCLOPRAMIDE HCL 10 MG/2 ML VIAL IV PUSH PRN (23:46)
[2017-03-06] VITALS: BP 105/55; PULSE 83; RESP 20; TEMP 99.1; O2SAT 94
[2017-03-06 04:00] VITALS: BP 105/56; PULSE 76; RESP 16; TEMP 98; O2SAT 93
[2017-03-06 08:00] VITALS: BP 109/61; PULSE 80; RESP 16; TEMP 99.1; O2SAT 96
[2017-03-06 08:35] LABS: TOTAL BILIRUBIN ADULT 4.6 MG/DL (0.2-1.0)
[2017-03-06] MEDS: PANTOPRAZOLE SOD 40 MG DELAYED RELEASE TAB PO SCH (08:58)
[2017-03-06] MEDS: THIAMINE HCL 100 MG TAB PO SCH (08:58)
[2017-03-06] MEDS: SODIUM CHLORIDE 0.9% FLUSH 10 ML FLUSH IV FLUSH SCH (08:59)
--- NOTE | 2017-03-06 11:33 | HHI.PR ---
Subjective Remarks Follow-up hyperbilirubinemia/abdominal pain 03/03/17-patient seen and examined, reports improvement in abdominal symptoms since admission. Denies any nausea or vomiting with by mouth intake. 03/04/17-patient seen and examined home had episode of emesis last night however not this morning. She was able to tolerate by mouth. Denies any significant abdominal pain. Per /boyfriend jaundice is improving. Bilirubin still up 4.1 03/05/17-patient seen and examined, she had MRCP today . quite sleepy and lethargic after the procedure 03/06/17-patient seen and examined, denies any significant abdominal pain and currently stable. Tolerated by mouth without any nausea of vomiting Objective Vitals Vital Signs Date Time Temp Pulse Resp B/P (MAP) Pulse Ox O2 Delivery O2 Flow Rate FiO2 03/06/17 09:04 Room Air 03/06/17 08:00 99.1 80 16 109/61 (77) 96 03/06/17 04:00 98.0 76 16 105/56 (72) 93 03/06/17 00:00 99.1 83 20 105/55 (72) 94 03/05/17 20:00 98.9 92 19 107/61 (76) 93 03/05/17 19:00 Room Air 03/05/17 16:04 97.8 91 16 122/69 (86) 94 03/05/17 12:04 98.5 80 16 120/66 (84) 92 I/O 03/05/17 03/05/17 03/05/17 03/06/17 03/06/17 03/06/17 06:59 14:59 22:59 06:59 14:59 22:59 Intake Total 640 ml 420 ml 320 ml Output Total 750 ml 650 ml Balance -110 ml 420 ml -330 ml Intake Oral 640 ml 420 ml 320 ml Output Urine Total 750 ml 650 ml # Voids 5 # Bowel Movements 1 2 1 Result Diagram: 03/03/17 0614 03/04/17 0712 Imaging Last Impressions Cholangiopancreatography MRI 03/05/17 0000 Signed Impressions: Service Date/Time: Sunday, March 05, 2017 09:54 - CONCLUSION: 1. There are no findings to indicate bile duct obstruction. The common bile duct is normal in size and no filling defect is present. 2. Hepatomegaly with steatosis and liver features suggestive of cirrhosis. 3. The splenomegaly and free fluid could be related to the liver disease. Additionally, there is gallbladder wall edema which is nonspecific but could also be related to liver disease. 4. There is a 19 mm lesion in the medial aspect of the spleen. Imaging features are nonspecific. As mentioned previously this could represent a hemangioma. Most incidentally detected spleen lesions are benign. If no older examinations are available suggest performing six-month followup to confirm stability. Hira Wiley MD Liver Ultrasound 03/03/17 0000 Signed Impressions: Service Date/Time: Friday, March 03, 2017 16:08 - CONCLUSION: 1. Hepatic steatosis, hepatomegaly and slightly nodular hepatic contour consistent with cirrhosis. 2. Right liver cyst. 3. 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 4. The main portal vein demonstrates hepatofugal flow within the visualized portions, however the more central main portal vein is not well-visualized and flow cannot be confirmed. It is patent on yesterday's CT study. 5. Gallbladder polyp. 6. Mildly prominent common bile duct up to 7.7 mm. Kenny Silva MD Abdomen/Pelvis CT 03/02/17 0000 Signed Impressions: Service Date/Time: Thursday, March 02, 2017 13:01 - CONCLUSION: 1. Hepatomegaly with profound decreased hepatic attenuation consistent with advanced hepatic steatosis or early acute hepatitis. 2. Small amount of ascites and minimally recanalized periumbilical vein suggests some degree of portal hypertension. 3. Nonspecific 1.8 x 1.9 cm splenic mass. Consider followup MRI examination in 6-12 months if patient has no history of malignancy. Otherwise, consider further characterization with MRI or PET scan if patient has a history of malignancy. Kirk Botello MD Objective Remarks GENERAL: NAD SKIN: Warm and dry. HEAD: Normocephalic. EYES: No scleral icterus. No injection or drainage. NECK: Supple, trachea midline. No JVD or lymphadenopathy. CARDIOVASCULAR: Regular rate and rhythm without murmurs, gallops, or rubs. RESPIRATORY: Breath sounds equal bilaterally. No accessory muscle use. GASTROINTESTINAL: Abdomen soft, non-tender, distended. +HSM MUSCULOSKELETAL: No cyanosis, or edema. BACK: Nontender without obvious deformity. No CVA tenderness. Procedures none A/P Problem List: (1) Alcohol abuse ICD Code: F10.10 - Alcohol abuse, uncomplicated (2) Hyperbilirubinemia ICD Code: E80.6 - Other disorders of bilirubin metabolism (3) Elevated liver enzymes ICD Code: R74.8 - Abnormal levels of other serum enzymes Status: Acute (4) Coagulopathy ICD Code: D68.9 - Coagulation defect, unspecified (5) Splenic mass ICD Code: R16.1 - Splenomegaly, not elsewhere classified Assessment and Plan 57-year-old female Hyperbilirubinemia CT abdomen/pelvics report from outside noted and review Liver US noted and review Appreciate input from gastroenterology CEA negative and T Bili 4.4 today MRCP 03/05/17 with no finding of common bile duct obstruction Transaminitis Likely secondary to alcohol abuse Hepatitis profile negative CT abdomen/pelvics noted and review, LIVER US noted Anti-smooth muscle antibody, 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 Radiologist recommends MRI in 6-12 months. DVT prophylaxis: Bilateral SCDs Brad Thornton MD Mar 06, 2017 11:33
[2017-03-06] MEDS ORDERED: GNP100TA3 PO (11:34)
[2017-03-06] MEDS ORDERED: PANT40TA3 PO (11:34)
--- NOTE | 2017-03-06 11:37 | HHI.DS ---
Discharge Summary Admission Date Mar 02, 2017 at 14:54 Discharge Date: Mar 06, 2017 Admitting Diagnosis Elevated liver enzymes, hyperbilirubinemia (1) Alcohol abuse ICD Code: F10.10 - Alcohol abuse, uncomplicated (2) Hyperbilirubinemia ICD Code: E80.6 - Other disorders of bilirubin metabolism (3) Elevated liver enzymes ICD Code: R74.8 - Abnormal levels of other serum enzymes Status: Acute (4) Coagulopathy ICD Code: D68.9 - Coagulation defect, unspecified (5) Splenic mass ICD Code: R16.1 - Splenomegaly, not elsewhere classified Procedures none Brief History - From Admission 57-year-old female with a history of alcohol abuse was sent to the ED or PCP for evaluation of elevated LFTs, abnormal labs as well as CT abdomen/ pelvics. Patient reported history of alcohol abuse and complaints of 3 month history of abdominal pain described as stabbing and radiated 8/10 in intensity without any associated GI bleed, hemoptysis or hematuria. She also denies any chest pain however report shortness of breath CBC/BMP: 03/03/17 0614 03/04/17 0712 Significant Findings Laboratory Tests Test 03/04/17 07:12 03/05/17 07:42 03/06/17 07:35 Prothrombin Time 15.9 SEC (9.8-11.6) Blood Urea Nitrogen 4 MG/DL (7-18) Creatinine 0.49 MG/DL (0.50-1.00) Total Protein 5.4 GM/DL (6.4-8.2) Albumin 1.9 GM/DL (3.4-5.0) Calcium Level 7.6 MG/DL (8.5-10.1) Alkaline Phosphatase 262 U/L (45-117) Aspartate Amino Transf (AST/SGOT) 138 U/L (15-37) Total Bilirubin 4.1 MG/DL (0.2-1.0) 4.4 MG/DL (0.2-1.0) 4.6 MG/DL (0.2-1.0) Direct Bilirubin 3.2 MG/DL (0.0-0.2) 3.4 MG/DL (0.0-0.2) 3.5 MG/DL (0.0-0.2) Potassium Level 3.3 MEQ/L (3.5-5.1) Imaging Last Impressions Cholangiopancreatography MRI 03/05/17 0000 Signed Impressions: Service Date/Time: Sunday, March 05, 2017 09:54 - CONCLUSION: 1. There are no findings to indicate bile duct obstruction. The common bile duct is normal in size and no filling defect is present. 2. Hepatomegaly with steatosis and liver features suggestive of cirrhosis. 3. The splenomegaly and free fluid could be related to the liver disease. Additionally, there is gallbladder wall edema which is nonspecific but could also be related to liver disease. 4. There is a 19 mm lesion in the medial aspect of the spleen. Imaging features are nonspecific. As mentioned previously this could represent a hemangioma. Most incidentally detected spleen lesions are benign. If no older examinations are available suggest performing six-month followup to confirm stability. Hira Wiley MD Liver Ultrasound 03/03/17 0000 Signed Impressions: Service Date/Time: Friday, March 03, 2017 16:08 - CONCLUSION: 1. Hepatic steatosis, hepatomegaly and slightly nodular hepatic contour consistent with cirrhosis. 2. Right liver cyst. 3. 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 4. The main portal vein demonstrates hepatofugal flow within the visualized portions, however the more central main portal vein is not well-visualized and flow cannot be confirmed. It is patent on yesterday's CT study. 5. Gallbladder polyp. 6. Mildly prominent common bile duct up to 7.7 mm. Kenny Silva MD Abdomen/Pelvis CT 03/02/17 0000 Signed Impressions: Service Date/Time: Thursday, March 02, 2017 13:01 - CONCLUSION: 1. Hepatomegaly with profound decreased hepatic attenuation consistent with advanced hepatic steatosis or early acute hepatitis. 2. Small amount of ascites and minimally recanalized periumbilical vein suggests some degree of portal hypertension. 3. Nonspecific 1.8 x 1.9 cm splenic mass. Consider followup MRI examination in 6-12 months if patient has no history of malignancy. Otherwise, consider further characterization with MRI or PET scan if patient has a history of malignancy. Kirk Botello MD PE at Discharge GENERAL: NAD SKIN: Warm and dry. HEAD: Normocephalic. EYES: No scleral icterus. No injection or drainage. NECK: Supple, trachea midline. No JVD or lymphadenopathy. CARDIOVASCULAR: Regular rate and rhythm without murmurs, gallops, or rubs. RESPIRATORY: Breath sounds equal bilaterally. No accessory muscle use. GASTROINTESTINAL: Abdomen soft, non-tender, distended. +HSM MUSCULOSKELETAL: No cyanosis, or edema. BACK: Nontender without obvious deformity. No CVA tenderness. 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 Radiologist recommends MRI in 6-12 months. DVT prophylaxis: Bilateral SCDs Pt Condition on Discharge: Stable Discharge Disposition: Discharge Home Discharge Time: <= 30 minutes Discharge Instructions DIET: Follow Instructions for: Heart Healthy Diet Follow up Referrals: Gastroenterology PCP Follow-up - 1 Week New Orders: MRI Abdomen W/Contrast - 6 Months New Medications: Pantoprazole (Pantoprazole) 40 Mg Tab 40 MG PO DAILY for Prevent Stress Ulcers, #30 TAB Thiamine HCl (Gnp Vitamin B-1) 100 Mg Tab 100 MG PO DAILY for Alcohol Detox, #30 TAB Continued Medications: Ibuprofen (Ibuprofen) 200 Mg Tab 600 MG PO DAILY PRN for PAIN, TAB 0 Refills Brad Thornton MD Mar 06, 2017 11:37
[2017-03-06 12:00] VITALS: BP 114/61; PULSE 87; RESP 16; TEMP 98.5; O2SAT 92
[2017-03-06] MEDS ORDERED: ALPRAZolam 1 MG TAB PO ONE (12:30)
[2017-03-07 03:51] LABS: MITOCHONDRIAL ABS LESS THAN 20.0 U (<=20.0)
== END 2017-03-06 13:56 | disposition home or self-care (01) | DRG 897 ==
LOC: NEPC 10:00 → NEDA 14:54 → N04B 18:16
PROVIDERS: ADMIT Hospitalist; ATTEND Hospitalist
DX: F10.10 Alcohol abuse, uncomplicated (principal); D68.4 Acquired coagulation factor deficiency; K76.6 Portal hypertension; D53.1 Other megaloblastic anemias, not elsewhere classified; R16.1 Splenomegaly, not elsewhere classified; N39.0 Urinary tract infection, site not specified; F41.9 Anxiety disorder, unspecified; F32.9 Major depressive disorder, single episode, unspecified; M79.7 Fibromyalgia; Z87.891 Personal history of nicotine dependence
CPT/HCPCS: 74177; 74181; 76377; 76705; 80053; 80074; 81001; 82103; 82105; 82140; 82247; 82248; 82390; 82607; 82728; 82746; 83520; 83540; 83550; 83690; 85025; 85610; 85730; 86038; 86255; 87086; 96374; J0696; J1885; J2270; J2405; J2765; Q9967